=== PATIENT | male | born 1980 | race Caucasian/White ===

== ENCOUNTER 2018-08-15 19:52 | Emergency (ER) | payer MEDICAID ==
[~2018-08-15] VITALS: Ht 170.2 cm; Wt 63.5 kg
[2018-08-15 19:55] VITALS: BP 130/77
[2018-08-15] MEDS ORDERED: ONDANSETRON 4 MG ODT PO ONE (21:20)
[2018-08-15] MEDS ORDERED: KETOROLAC 60 MG/2 ML VIAL IM ONE (21:20)
[2018-08-15] MEDS ORDERED: METOCLOPRAMIDE 10 MG/2 ML INJ VIAL IM ONE (21:30)
[2018-08-15] MEDS ORDERED: MORPHINE SULFATE 4 MG/ML SYR IM ONE (21:30)
[2018-08-15 22:39] VITALS: BP 130/77
== END 2018-08-15 22:39 | disposition home or self-care (01) ==
LOC: MED 19:52
DX: R11.2 Nausea with vomiting, unspecified (principal); R10.13 Epigastric pain; F17.200 Nicotine dependence, unspecified, uncomplicated
CPT/HCPCS: 81002; 96372; 99284; J2270; J2765; J1885; Q0162

== ENCOUNTER 2018-11-07 18:55 | Emergency (ER) | payer MEDICAID ==
[~2018-11-07] VITALS: Ht 167.6 cm; Wt 64.2 kg
[2018-11-07 19:05] VITALS: BP 108/68
--- NOTE | 2018-11-07 19:07 | NUR ---
PT AMBULATORY TO ER LOBBY W/ STEADY GAIT IN STABLE CONDITION.
--- NOTE | 2018-11-07 19:17 | NUR ---
PT TAKEN TO BED 8
--- NOTE | 2018-11-07 19:25 | NUR ---
38/M PRESENTS TO ED WITH FRIEND, C/O 810 CRAMPING DIFFUSE ABD PAIN AND MID-LOWER BACK PAIN, X1 DAY. PT REPORTS N/V, WITH ACTIVE VOMITING AT THIS TIME. PT DENIES TRAUMA/INJURY, FEVER. REPORTS TAKING A CANNABINOID BROWNIE YESTERDAY. PT REPORTS SIMILAR EPISODE BEFORE WITH CANNABINOID HYPEREMESIS SYNDROME. PT AOX4, GCS 15, RR EVEN AND UNLABORED. HX CANNABINOID HYPEREMESIS SYNDROME
--- NOTE | 2018-11-07 20:22 | NUR ---
Dr. Whelan evaluating patient at bedside.
[2018-11-07] MEDS ORDERED: NACL 0.9% 1,000 ML IV SCH (20:26)
[2018-11-07] MEDS ORDERED: ONDANSETRON 4 MG/2 ML VIAL IVP ONE (20:30)
[2018-11-07] MEDS ORDERED: MORPHINE SULFATE 4 MG/ML SYR IVP ONE ×2 (20:30→21:25)
[2018-11-07 20:40] LABS: BASOPHILS % (AUTO) 0.2 % (0.0-2.0); HEMATOCRIT 45.8 % (36-52); HEMOGLOBIN 15.4 g/dL (12.0-18.0); LYMPHOCYTES # (AUTO) 0.8 K/uL (2.0-11.5); LYMPHOCYTES % (AUTO) 9.2 % (20.5-51.1); MEAN CORPUSCULAR HEMOGLOBIN 32 pg (27-31); MEAN CORPUSCULAR HGB CONC 34 g/dL (33-37); MONOCYTES # (AUTO) 0.1 K/uL (0.8-1.0); MONOCYTES % (AUTO) 1.7 % (1.7-9.3); NEUTROPHILS # (AUTO) 7.7 K/uL (1.8-7.7); NEUTROPHILS % (AUTO) 88.9 % (42.2-75.2); PLATELET COUNT (AUTO) 230 K/uL (140-450); RED BLOOD CELL COUNT(AUTO) 4.87 MIL/uL (4.20-6.10); RED CELL DISTRIBUTION WIDTH 13.7 % (11.6-13.7); WHITE BLOOD COUNT (AUTO) 8.7 K/uL (4.8-10.8)
[2018-11-07 20:55] LABS: APPEARANCE,URINE HAZY (CLEAR); BILIRUBIN,URINE 2+ (NEGATIVE); BLOOD, URINE 3+ (NEGATIVE); COLOR,URINE YELLOW (YELLOW); LEUKOCYTE ESTERASE ,URINE NEGATIVE (NEGATIVE); NITRITE, URINE NEGATIVE (NEGATIVE); UGLUCOSE NEGATIVE (NEGATIVE)
[2018-11-07 20:56] LABS: RBC,URINE 3-10 (FEW) /HPF (0-5)
[2018-11-07 20:57] LABS: WBC,URINE 0-5 (RARE) /HPF (0-5)
[2018-11-07 21:07] LABS: CARBON DIOXIDE 25.1 mmol/L (21-32); POTASSIUM 4.1 mmol/L (3.5-5.1)
[2018-11-07 21:13] LABS: ALBUMIN 4.7 g/dL (3.4-5.0); TOTAL BILIRUBIN 1.1 mg/dL (0.0-1.0)
--- NOTE | 2018-11-07 21:48 | NUR ---
Patient discharged with v/s stable. Written and verbal after care instructions given and explained. Patient alert, oriented and verbalized understanding of instructions. Ambulatory with steady gait. All questions addressed prior to discharge. ID band removed. Patient advised to follow up with PMD. Rx of Zofran, Motrin, and [place] given. Patient educated on indication of medication including possible reaction and side effects. Opportunity to ask questions provided and answered.
[2018-11-07 21:58] VITALS: BP 135/89
== END 2018-11-07 21:48 | disposition home or self-care (01) ==
LOC: MED 18:55
DX: R10.13 Epigastric pain (principal); R11.2 Nausea with vomiting, unspecified
CPT/HCPCS: 36415; 80053; 81001; 83690; 85025; 96361; 96374; 96375; 96376; 99283; J2270; J2405; J7030